=== PATIENT | male | born 1950 | race Two or more races ===

== ENCOUNTER 2019-01-20 09:43 | Day surgery (SDC) | payer OTHER, MEDICARE ==
[~2019-01-20 09:43] MED LIST: KETOROLAC TROMETHAMINE 0.45% 4 DROP/0.4 ML DROPERETTE OD PRN
[2019-01-20] MEDS ORDERED: CHONDR SU A NA/HYALUR INTRAOC KIT (SURGICARE) ONE (09:56)
[2019-01-20] MEDS ORDERED: EPINEPHRINE INJ/PF 1 MG/1 ML AMPULE ONE (09:56)
[2019-01-20] MEDS ORDERED: LIDOCAINE 1%/PHENYLEPHRINE 1.5% 1 ML VIAL ONE (09:56)
[2019-01-20] MEDS: TROPICAMIDE 1% OPH SOLN 3 ML OD PRN ×3 (10:23→10:47)
[2019-01-20] MEDS: TETRACAINE HCL 0.5% OPH SOLN 4 ML OD PRN ×3 (10:23→10:53)
[2019-01-20] MEDS: CYCLOPENTOLATE 0.2%/PHENYLEPHRINE 1% OPH SOLN 2 ML OD PRN ×3 (10:24→10:47)
[2019-01-20] MEDS: BESIFLOXACIN HCL 0.6% OPH SUSP 5 ML BOTTLE OD PRN ×4 (10:24→11:24)
[2019-01-20] MEDS ORDERED: MIDAZOLAM 2 MG/2 ML INJ ONE (10:32)
[2019-01-20] MEDS ORDERED: TRYPAN BLUE 0.06 % OPH SOLN 0.5 ML DISP.SYRIN ONE (11:03)
[2019-01-20] MEDS ORDERED: CHONDR SU A NA/HYALUR SOD 0.5 ML DISP.SYRIN ONE (11:19)
[2019-01-20] MEDS: DORZOLAMIDE HCL 2%/TIMOLOL MALEAT 0.5% OPH SOLN 10 ML OD PRN ×2 (11:24)
--- NOTE | 2019-01-20 19:14 | [facility] DISCHARGE SUMMARY E ---
[facility] Discharge Summary NAME: JOSE HOLLEY AGE: 68Y ADMITTED: 01/20/2019 DISCHARGED: 01/20/2019 HOSPITAL COURSE: This is a 68-year-old patient who underwent complex cataract surgery due to poor red reflex requiring trypan blue dye. 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 The patient underwent surgery because he was unable to see anything on the TV from his right eye. DISCHARGE INSTRUCTIONS: He is to be on a regular diet. No bending at his waist, no heavy lifting. He should use his Vigamox, ketorolac, and Predforte at 3 p.m. and 8 p.m. and sleep with a rigid shield. I will see him for his 1 day postoperative tomorrow. DICTATING PHYSICIAN: LEONEL JACINTO M.D. [id number] PHY#: [id number] ID: [id number] JOB#: [id number] ACCT: [id number] cc:LEONEL JACINTO M.D. >
--- NOTE | 2019-01-20 19:14 | [facility] OPERATIVE REPORT E ---
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 PROCEDURE: Complex cataract extraction with use of trypan blue dye due to poor red reflex. SURGEON: LEONEL JACINTO M.D. ANESTHESIA: Topical. PROCEDURE: After obtaining appropriate consent, the patient's right eye was prepped and draped in sterile fashion as well as the surgeon in a sterile manner and cataract surgery was started. First a paracentesis blade was used to make a side-port incision. Viscoelastic was used to inflate the anterior chamber. Next a 2.4 mm incision was made with a 2.4 mm blade, clear corneal temporally. A continuous capsulorrhexis was made using a cystotome and Utrata forceps. Following this hydrodissection was carried out to make the lens fully loose and mobile and it was rotated 90 degrees. Following this, a krkmcj-fjb-llntxiv technique was used to phacoemulsify the lens with a CDE of 69.49. The remaining cortex was removed with irrigation/aspiration. Provisc was instilled into the capsular bag to inflate the bag. A SN60WF, 15.5 diopter lens was placed. The remaining viscoelastic material was removed with irrigation/aspiration. Following this, the incision was found to be watertight. Besivance was instilled into the eye and a protective shield was placed over the eye. The patient returned to the postoperative recovery in stable condition. Due to the lens being dense with a poor red reflex, trypan blue dye was used to stain the anterior capsule to complete the capsulorhexis. DICTATING PHYSICIAN: LEONEL JACINTO M.D. [id number] PHY#: [id number] ID: [id number] JOB#: [id number] ACCT: [id number] cc:LEONEL JACINTO M.D. >
== END 2019-01-20 11:58 | disposition home or self-care (01) ==
LOC: SC 09:43
PROVIDERS: ATTEND Internal Medicine
DX: H25.89 Other age-related cataract (principal); H50.111 Monocular exotropia, right eye; I10 Essential (primary) hypertension; F03.90 Unspecified dementia, unspecified severity, without behavioral disturbance, psychotic disturbance, mood disturbance, and anxiety; Z79.899 Other long term (current) drug therapy
CPT/HCPCS: 66982; V2632; J2250; J3490 ×4; J0171; J2370; 142